=== PATIENT | male | born 1995 | race Caucasian/White ===

== ENCOUNTER 2020-08-30 22:12 | Emergency (ER) | payer OTHER ==
[~2020-08-30] VITALS: Ht 175.3 cm; Wt 81.6 kg
[2020-08-30 22:20] VITALS: BP 151/95; Ht 175.3 cm; Wt 81.6 kg
== END 2020-08-30 22:56 ==
LOC: ED 22:12
DX: Z02.89 Encounter for other administrative examinations (principal)